=== PATIENT | female | born 1950 | race Caucasian/White ===

== ENCOUNTER 2020-12-27 20:26 | Outpatient (CLI) | payer MEDICARE, MEDICAID | END 2020-12-27 20:27 | disposition home or self-care (01) | LOC: COV 20:26 | PROVIDERS: ATTEND Ophthalmology | DX: Z01.812 Encounter for preprocedural laboratory examination (principal); H25.812 Combined forms of age-related cataract, left eye; E11.9 Type 2 diabetes mellitus without complications; Z20.822 Contact with and (suspected) exposure to COVID-19 ==

== ENCOUNTER 2020-12-30 08:10 | Day surgery (SDC) | payer MEDICARE, MEDICAID ==
[~2020-12-30 08:10] MED LIST: KETOROLAC 0.45% OPHTH DROPS ONE; PROPARACAINE 0.5% OPHTH DROPS 15 ML ONE
[2020-12-30] MEDS ORDERED: TRIAMCIN/MOXIFLOX OPHTHALMIC 0.6 ML VIAL IO ONE ×2 (09:09→09:55)
[2020-12-30] MEDS ORDERED: EPINEPHrine 1 MG/ML AMP ONE (09:10)
[2020-12-30] MEDS ORDERED: BRIMONIDINE 0.2% OPHTH DROPS 5 ML ONE (09:10)
[2020-12-30] MEDS ORDERED: TIMOLOL 0.5% OPHTH DROPS ONE (09:10)
[2020-12-30] MEDS ORDERED: BSS/LIDOCAINE/EPINEPHRINE 1 ML SYRINGE ONE (09:10)
[2020-12-30] MEDS ORDERED: VANCOMYCIN OPHTHALMI 8MG/0.8ML 8 MG/0.8 ML SYRINGE IO ONE ×2 (09:10→09:56)
--- NOTE | 2020-12-30 09:20 | ANESTHESIA ---
Pre-Anesthesia VS, & Labs - Diagnosis senile combined cataract left eye - Procedure left eye cataract extraction with IOL Vital Signs: Temp Pulse Resp BP Pulse Ox 37.0 C 83 17 182/83 H 97 12/30/20 08:30 12/30/20 08:30 12/30/20 08:30 12/30/20 08:30 12/30/20 08:30 Height: 5 ft 6 in Weight (kg): 88.2 kg Body Mass Index: 31.4 BMI Classification: Obese - NPO >8 hours - Is Patient ?: No Home Medications and Allergies Home Medications: Ambulatory Orders Cholecalciferol (Vitamin D3) [Vitamin D3] 30 mcg PO DAILY 12/29/20 Cyclobenzaprine [Flexeril] 5 mg PO TID 12/29/20 Levothyroxine [Synthroid] 37.5 mcg PO DAILY 12/29/20 [place]-3/Dha/Epa/Fish Oil [Fish Oil 1,000 mg Softgel] 2 each PO DAILY 12/29/20 Omeprazole Magnesium 20 mg PO DAILY PRN 12/29/20 Topiramate [Topamax] 100 mg PO DAILY 12/29/20 Topiramate [Topamax] 200 mg PO DAILY 12/29/20 Cholecalciferol (Vitamin D3) [Vitamin D3] 30 mcg PO DAILY 12/29/20 Cyclobenzaprine [Flexeril] 5 mg PO TID 12/29/20 Levothyroxine [Synthroid] 37.5 mcg PO DAILY 12/29/20 [place]-3/Dha/Epa/Fish Oil [Fish Oil 1,000 mg Softgel] 2 each PO DAILY 12/29/20 Omeprazole Magnesium 20 mg PO DAILY PRN 12/29/20 Topiramate [Topamax] 100 mg PO DAILY 12/29/20 Topiramate [Topamax] 200 mg PO DAILY 12/29/20 Allergies/Adverse Reactions: Allergies Allergy/AdvReac Type Severity Reaction Status Date / Time Sulfa (Sulfonamide Allergy Respiratory Verified 12/29/20 14:30 Antibiotics) codeine AdvReac Nausea Verified 12/29/20 14:30 Yhsiryr-Esn-Jnt Reductase AdvReac severe leg Verified 12/29/20 14:30 Inhibitor cramps Anes History & Medical History - Anesthetic History Anesthesia Complications: reports: No previous complications - Medical History Cardiovascular: reports: Arrhythmia Pulmonary: reports: Sleep apnea (no CPAP) Gastrointestinal: reports: GERD (barrets), Hepatitis (Hep. C positive) Urinary: reports: None Neuro: reports: Tremors Musculoskeletal: reports: Osteoarthritis, Chronic back pain Endocrine/Autoimmune: reports: HyPOthyroidism (hashimotos) Blood Disorders: reports: None Skin: reports: None Smoking Status: Former smoker (quit 1984) Psychosocial: reports: Depression, Anxiety, Other (PTSD) - Surgical History General: reports: Appendectomy Exam General: Alert, Oriented x3, Cooperative, No acute distress Dental: WNL Mouth Openin Fingerbreadth Neck Mobility: Normal Mallampati classification: II Thyromental Distance: 4-6 cm Mental/Cognitive Status: Alert/Oriented X3, Normal for patient Plan Anesthesia Type: MAC Consent for Procedure(s) Verified and Reviewed: Yes Code Status: Attempt Resuscitation ASA classification: 2-Mild systemic disease Is this case an emergency?: No
[2020-12-30] MEDS ORDERED: MIDAZOLAM 2 MG/2 ML VIAL ONE (09:28)
[2020-12-30] MEDS ORDERED: EPINEPHrine 1 MG/ML AMP IR ONE (09:54)
[2020-12-30] MEDS ORDERED: BRIMONIDINE 0.2% OPHTH DROPS 5 ML OPTH ONE (09:54)
[2020-12-30] MEDS ORDERED: TIMOLOL 0.5% OPHTH DROPS OPTH ONE (09:54)
[2020-12-30] MEDS ORDERED: CHONDR SULF/HYALURONATE SYRINGE IO ONE (09:54)
[2020-12-30] MEDS ORDERED: BSS/LIDOCAINE/EPINEPHRINE 1 ML SYRINGE IO ONE (09:55)
[2020-12-30] MEDS ORDERED: PROPARACAINE 0.5% OPHTH DROPS 15 ML EACHEYE ONE (09:56)
[2020-12-30] MEDS ORDERED: LACTATED RINGERS 450 ML IV ONE (10:10)
--- NOTE | 2020-12-30 10:38 | OPERATIVE REPORT ---
DATE OF SERVICE: 12/30/2020 Physician: Andres Sanchez MD PREOPERATIVE DIAGNOSIS: Visually significant cataract, left eye. This was her first cataract surgery. POSTOPERATIVE DIAGNOSIS: Visually significant cataract, left eye. This was her first cataract surgery. PROCEDURE: Phacoemulsification with posterior chamber intraocular lens implant, left eye. SURGEON: Andres Sanchez III, MD ANESTHESIA: Monitored anesthesia care. COMPLICATIONS: None. OPERATIVE INDICATIONS: This is a 70-year-old woman with progressive vision loss in the left eye due to 2+ nuclear sclerotic and 3+ posterior subcapsular cataract. Best corrected visual acuity was 20/80 with glare to 20/630 in the left eye. Indications for surgery are overall decrease in vision, difficulty seeing words on a computer screen, difficulty reading, difficulty seeing words, closed caption or game scores on TV, difficulty seeing street signs, difficulty driving in low light or at night, difficulty driving at night because of headlights from other vehicles, difficulty with glare or bright lights in any situation and difficulty tracking a golf ball. She was consented at length concerning risks and benefits of cataract surgery, after which she expressed a desire to proceed with surgery. OPERATIVE PROCEDURE: Prior to the patient going to the OR in the PACU(preanesthesia care unit), the patient's cornea was marked with a Tito marker for axis 169 for a planned toric intraocular lens. The patient was then taken into OR #3 and placed under monitored anesthesia care. A surgical timeout was conducted to confirming correct patient, correct procedure, and correct surgical site. She was given topical anesthesia and prepped and draped in the usual sterile fashion. The eye was entered at the 6 and 3 o'clock positions. Intracameral Shugarcaine was injected into the anterior chamber followed by Viscoat. A continuous-tear curvilinear capsulorrhexis was performed. The nucleus was hydrodissected and phacoemulsified. The cortex was evacuated using automated infusion and aspiration. Provisc was injected in the capsular bag and a 25.0 diopter toric intraocular lens inserted in the bag and rotated to axis 169. Infusion and aspiration were used to evacuate the viscoelastic materials. The eye was inflated to physiologic pressure using balanced salt solution and found to be watertight. [place] was again verified to still be at 169. Approximately 0.25 mL mixture of triamcinolone and moxifloxacin was injected transsclerally into the vitreous in the inferotemporal quadrant. An additional 0.55 mL of a mixture of triamcinolone, moxifloxacin and vancomycin was injected subconjunctivally in the superior quadrant for infection and inflammation prophylaxis. Wound integrity was checked with Weck-Bety sponges and the axis was again verified to be at 169. The patient was taken from the operating room in good condition and given postoperative instructions. TD: 12/30/2020 10:37 MTDD
[2020-12-30 10:49] VITALS: BP 149/71
--- NOTE | 2020-12-30 13:15 | ANESTHESIA POST OP EVALUATION ---
Anesthesia Post Eval - Post Anesthesia Eval Vitals: Last Vital Signs Temp 36.2 C L 12/30/20 10:48 Pulse 74 12/30/20 10:48 Resp 16 12/30/20 10:48 BP 149/71 H 12/30/20 10:48 Pulse Ox 97 12/30/20 10:48 CV Function Including HR & BP: Stable Pain Control: Satisfactory Nausea & Vomiting: Negative Mental Status: Baseline Respiratory Status: Airway Patent Hydration Status: Satisfactory Anesthesia Complications: None
== END 2020-12-30 08:11 | disposition home or self-care (01) ==
LOC: SDS 08:10
PROVIDERS: ATTEND Ophthalmology
DX: H25.812 Combined forms of age-related cataract, left eye (principal); R73.03 Prediabetes; I10 Essential (primary) hypertension; E78.5 Hyperlipidemia, unspecified; E06.3 Autoimmune thyroiditis; G40.909 Epilepsy, unspecified, not intractable, without status epilepticus; I49.9 Cardiac arrhythmia, unspecified; G47.30 Sleep apnea, unspecified; K22.70 Barrett's esophagus without dysplasia; K21.9 Gastro-esophageal reflux disease without esophagitis; F43.10 Post-traumatic stress disorder, unspecified; F41.9 Anxiety disorder, unspecified; F32.9 Major depressive disorder, single episode, unspecified; R25.1 Tremor, unspecified; G89.29 Other chronic pain; M54.9 Dorsalgia, unspecified; M54.2 Cervicalgia; M19.90 Unspecified osteoarthritis, unspecified site; Z87.891 Personal history of nicotine dependence; Z86.19 Personal history of other infectious and parasitic diseases; Z86.79 Personal history of other diseases of the circulatory system; Z79.899 Other long term (current) drug therapy; E66.9 Obesity, unspecified; Z68.31 Body mass index [BMI] 31.0-31.9, adult
CPT/HCPCS: 66984; A9270; J3490; J7120; V2632

== ENCOUNTER 2021-07-05 08:21 | Outpatient (CLI) | payer MEDICARE, MEDICAID ==
--- NOTE | 2021-07-14 09:21 | Mammography Report ---
BILATERAL DIGITAL SCREENING MAMMOGRAM 3D/2D: 07/05/2021 CLINICAL: Routine screening. Additional films were requested but not obtained. The tissue of both breasts is heterogeneously dens e. This may lower the sensitivity of mammography. There is a global asymmetry in the right breast upper outer aspect middle depth. No other significant masses, calcifications, or other findings are seen in either breast. IMPRESSION: INCOMPLETE: NEED PRIOR STUDIES FOR COMPARISON The global asymmetry in the right breast is indeterminate. Additional views with possible ultrasound are recommended. This exam was interpreted at Station ID: [id number]. NOTE: For mammograms, a report in lay terms will be sent to the patient. Approximately 15% of breast malignancies will not be visualized mammographically. In the management of a palpable breast mass, a negative mammogram must not discourage biopsy of a clinically suspicious lesion. Electronically Signed By: Giovanni ma/natan:07/13/2021 15:28:05 ACR BI-RADS Category 0 Need prior studies for comparison [id number] PARENCHYMAL PATTERN: (D) - The breast(s) demonstrate(s) heterogeneously dense fibroglandular paresteban arndt. BI-RADS CATEGORY: (0) - 0 Mammo and [place] [id number] Immediate follow-up LATERALITY: (R)
== END 2021-07-05 08:22 | disposition home or self-care (01) ==
LOC: DI.N 08:21
PROVIDERS: ATTEND Internal Medicine
DX: Z12.31 Encounter for screening mammogram for malignant neoplasm of breast (principal); R92.8 Other abnormal and inconclusive findings on diagnostic imaging of breast

== ENCOUNTER 2021-07-27 15:41 | Outpatient (CLI) | payer MEDICARE, MEDICAID | END 2021-07-27 15:42 | disposition home or self-care (01) | LOC: LAB.N 15:41 | PROVIDERS: ATTEND Ophthalmology | DX: Z01.812 Encounter for preprocedural laboratory examination (principal); H25.811 Combined forms of age-related cataract, right eye; E11.9 Type 2 diabetes mellitus without complications; Z20.822 Contact with and (suspected) exposure to COVID-19 ==

== ENCOUNTER 2021-07-28 06:41 | Day surgery (SDC) | payer MEDICARE, MEDICAID ==
[~2021-07-28 06:41] MED LIST changes: +CYCLOPENTOLATE 1% OPHTH DROPS 2 ML ONE; +PHENYLEPHRINE 2.5% OPHTH 2 ML DROPS ONE
[2021-07-28] MEDS ORDERED: BRIMONIDINE 0.2% OPHTH DROPS 5 ML ONE (06:56)
[2021-07-28] MEDS ORDERED: TRIAMCIN/MOXIFLOX OPHTHALMIC 0.6 ML VIAL IO ONE ×2 (06:56→08:02)
[2021-07-28] MEDS ORDERED: VANCOMYCIN OPHTHALMI 8MG/0.8ML 8 MG/0.8 ML SYRINGE IO ONE ×2 (06:56→08:02)
[2021-07-28] MEDS ORDERED: TIMOLOL 0.5% OPHTH DROPS ONE (06:56)
[2021-07-28] MEDS ORDERED: EPINEPHrine 1 MG/ML AMP ONE (06:56)
[2021-07-28] MEDS ORDERED: BSS/LIDOCAINE/EPINEPHRINE 1 ML SYRINGE ONE (06:56)
[2021-07-28] MEDS ORDERED: LACTATED RINGERS 1,000 ML IV ONE (07:07)
[2021-07-28] MEDS ORDERED: fentaNYL 100 MCG/2 ML VIAL ONE (07:32)
[2021-07-28] MEDS ORDERED: MIDAZOLAM 2 MG/2 ML VIAL ONE (07:32)
--- NOTE | 2021-07-28 07:46 | ANESTHESIA ---
Pre-Anesthesia VS, & Labs - Diagnosis senile cataract right eye - Procedure right cataract extraction with intraocular lens Vital Signs: Temp Pulse Resp BP Pulse Ox 36.5 C 92 14 192/78 H 98 07/28/21 07:00 07/28/21 07:00 07/28/21 07:00 07/28/21 07:00 07/28/21 07:00 Height: 5 ft 6 in Weight (kg): 90.8 kg Body Mass Index: 32.3 BMI Classification: Obese - NPO >8 hours - Is Patient ?: No Home Medications and Allergies Home Medications: Ambulatory Orders Ascorbic Acid [Vitamin C] 500 mg PO DAILY 07/27/21 Cholecalciferol (Vitamin D3) [Vitamin D] 800 unit PO DAILY 07/27/21 Levothyroxine [Synthroid] 37.5 mcg PO DAILY 12/29/20 [place]-3/Dha/Epa/Fish Oil [Fish Oil 1,000 mg Softgel] 1 each PO DAILY 12/29/20 Omeprazole Magnesium 20 mg PO DAILY PRN 12/29/20 Topiramate [Topamax] 100 mg PO DAILY 12/29/20 Ascorbic Acid [Vitamin C] 500 mg PO DAILY 07/27/21 Cholecalciferol (Vitamin D3) [Vitamin D] 800 unit PO DAILY 07/27/21 Allergies/Adverse Reactions: Allergies Allergy/AdvReac Type Severity Reaction Status Date / Time Sulfa (Sulfonamide Allergy Respiratory Verified 12/29/20 14:30 Antibiotics) codeine AdvReac Nausea Verified 12/29/20 14:30 Xwnklaa-[id number]-[id number] Reductase AdvReac severe leg Verified 12/29/20 14:30 Inhibitor cramps [Qldbfdg-Joz-Twt Reductase Inhibitor] Anes History & Medical History - Anesthetic History Anesthesia Complications: reports: No previous complications - Medical History Cardiovascular: reports: Hypertension (eye surgery), Arrhythmia Pulmonary: reports: Sleep apnea Gastrointestinal: reports: GERD, Hepatitis Urinary: reports: None Neuro: reports: Tremors Blood Disorders: reports: None Skin: reports: None Smoking Status: Former smoker (quit 1984) - Surgical History General: reports: Appendectomy Neurologic: reports: Other Exam General: Alert Dental: WNL Mallampati classification: II Respiratory: Lungs clear Cardiovascular: Regular rate Plan Anesthesia Type: MAC Consent for Procedure(s) Verified and Reviewed: Yes Code Status: Attempt Resuscitation ASA classification: 2-Mild systemic disease Is this case an emergency?: No
[2021-07-28] MEDS ORDERED: EPINEPHrine 1 MG/ML AMP IR ONE (08:01)
[2021-07-28] MEDS ORDERED: TIMOLOL 0.5% OPHTH DROPS OPTH ONE (08:01)
[2021-07-28] MEDS ORDERED: BRIMONIDINE 0.2% OPHTH DROPS 5 ML OPTH ONE (08:01)
[2021-07-28] MEDS ORDERED: BSS/LIDOCAINE/EPINEPHRINE 1 ML SYRINGE IO ONE (08:01)
[2021-07-28] MEDS ORDERED: PROPARACAINE 0.5% OPHTH DROPS 15 ML EACHEYE ONE (08:02)
[2021-07-28] MEDS ORDERED: LACTATED RINGERS 700 ML IV ONE (08:14)
[2021-07-28 08:15] VITALS: BP 155/74
--- NOTE | 2021-07-28 08:18 | ANESTHESIA POST OP EVALUATION ---
Anesthesia Post Eval - Post Anesthesia Eval Vitals: Last Vital Signs Temp 36.9 C 07/28/21 08:12 Pulse 87 07/28/21 08:12 Resp 16 07/28/21 08:12 BP 155/74 H 07/28/21 08:12 Pulse Ox 97 07/28/21 08:12 CV Function Including HR & BP: Stable Pain Control: Satisfactory Nausea & Vomiting: Negative Mental Status: Baseline Respiratory Status: Airway Patent Hydration Status: Satisfactory Anesthesia Complications: None
--- NOTE | 2021-07-28 08:23 | OPERATIVE REPORT ---
Operative Report - Other Other Information/Narrative: Date of Surgery: 07/28/21 Preop Dx: Visually significant cataract right eye. Cataract surgery was performed in the left eye on . Postop Dx: Same Procedure: Phacoemulsification with posterior chamber toric intraocular lens implant right eye Surgeon: Dr. Andres Sanchez Anesthesia: Monitored anesthesia care Complications: None Operative Indications: This is a 70-year-old F with progressive vision loss in the right eye due to 2-3+ nuclear sclerotic and 1+ cortical cataract. Best corrected visual acuity was 20/25 with glare to 20/40 vision in the right eye. Indications for surgery were: - Overall decrease in vision - Difficulty seeing words on a computer screen - Difficulty reading - Difficulty seeing words, closed captions, or game scores on TV - Difficulty seeing street signs - Difficulty driving in low light or at night - Difficulty driving at night because of headlights from other vehicles - Difficulty with glare or bright lights in any situation The patient was consented at length concerning the risks and benefits of cataract surgery after which the patient expressed a desire to proceed with surgery. Operative Procedure: The patients cornea was marked in the pre-surgical area to indicate the axis for the toric intraocular lens. The patient was taken into OR#3 and placed under monitored anesthesia care. A surgical time-out was conducted confirming correct patient, correct procedure, and correct surgical site. The patient was given topical anesthesia and then prepped and draped in the usual sterile fashion. The eye was entered at the 6 and 3 oclock positions. Intracameral Shugarcaine was injected into the anterior chamber foll owed by a dispersive viscoelastic. A continuous-tear curvilinear capsulorhexis was performed. The nucleus was hydrodissected and phacoemulsified. The cortex was evacuated using automated infusion and aspiration. A cohesive viscoelastic was injected into the capsular bag and a 24.5 diopter toric intraocular lens was inserted into the bag and rotated to axis 015. Infusion and aspiration were used to evacuate the viscoelastic materials from the eye and the IOL was verified to remain on axis. The wounds were hydrated and the eye inflated to physiologic pressure using balanced salt solution. Approximately 0.25ml of a mixture of triamcinolone and moxifloxacin was injected trans-sclerally into the vitreous in the inferotemporal quadrant using a 30 gauge cannula. An additional 0.55ml of a mixture of triamcinolone, moxifloxacin, and vancomycin was injected subconjunctivally in the superior quadrant for infection and inflammation prophylaxis. Wound integrity was checked with Weck-Bety sponges and the IOL axis was once again verified to be on the correct axis. The patient was taken from the operating room in good condition and given post-op instructions.
== END 2021-07-28 06:42 | disposition home or self-care (01) ==
LOC: SDS 06:41
PROVIDERS: ATTEND Ophthalmology
DX: H25.811 Combined forms of age-related cataract, right eye (principal); Z98.42 Cataract extraction status, left eye; F41.9 Anxiety disorder, unspecified; G47.30 Sleep apnea, unspecified; E66.9 Obesity, unspecified; Z68.32 Body mass index [BMI] 32.0-32.9, adult; Z87.891 Personal history of nicotine dependence
CPT/HCPCS: 66984; A9270; J3490; J7120; V2632; V2787

== ENCOUNTER 2021-08-16 08:00 | Outpatient (CLI) | payer MEDICARE, MEDICAID ==
[2021-08-16 17:46] LABS: CALCIUM 9.3 mg/dL (8.5-10.3); CREATININE 0.7 mg/dL (0.4-1.0); MAGNESIUM 2.2 mg/dL (1.7-2.8); POTASSIUM 4.1 mmol/L (3.5-5.0)
[2021-08-16 19:34] LABS: ESTIMATED AVERAGE GLUCOSE 148 mg/dL (70-100); HEMOGLOBIN A1c% 6.8 % (4.27-6.07)
== END 2021-08-16 23:59 | disposition home or self-care (01) ==
LOC: LAB.S 08:00
PROVIDERS: ATTEND Internal Medicine
DX: E03.9 Hypothyroidism, unspecified (principal); G25.3 Myoclonus; Z79.899 Other long term (current) drug therapy
CPT/HCPCS: 36415; 80048; 83036; 83735; 84443

== ENCOUNTER 2021-09-19 11:19 | Outpatient (CLI) | payer MEDICARE, MEDICAID ==
--- NOTE | 2021-09-20 13:28 | CARDIAC PROCEDURE NOTE ---
Stress Test Report Procedure: Stress ECHO Ruy Protocol. 4 mins 21 seconds. mets = 6.34. Reason for stopping: leg pain HR response: 74 to 138 BP response: 155/86 to 255/83 Symptoms: no chest pain. ST segment response: no significant ST segment elevations or depressions Arrhythmias: none detected Impression: no symptoms, no significant EKG changes Conclusion: low-risk ETT. Await ECHO results before making final conclusion.
== END 2021-09-19 11:20 | disposition home or self-care (01) ==
LOC: DI 11:19
PROVIDERS: ATTEND Internal Medicine
DX: R07.9 Chest pain, unspecified (principal)
CPT/HCPCS: 93350

== ENCOUNTER 2021-11-09 08:00 | Outpatient (CLI) | payer MEDICARE, MEDICAID ==
[2021-11-09 13:22] LABS: BILIRUBIN,URINE NEGATIVE (NEGATIVE); GLUCOSE, URINE (UA) NEGATIVE (NEGATIVE); KETONES,URINE (UA) NEGATIVE (NEGATIVE); LEUKOCYTE ESTERASE, URINE NEGATIVE (NEGATIVE); NITRITE,URINE NEGATIVE (NEGATIVE); OCCULT BLOOD,URINE NEGATIVE (NEGATIVE); PROTEIN,URINE NEGATIVE (NEGATIVE); UROBILINOGEN,URINE 0.2 (NORMAL) E.U./dL (NORMAL)
[2021-11-09 13:24] LABS: CLARITY,URINE CLEAR (CLEAR)
== END 2021-11-09 23:59 ==
LOC: LAB.R 08:00
PROVIDERS: ATTEND Internal Medicine
DX: R39.9 Unspecified symptoms and signs involving the genitourinary system (principal)
CPT/HCPCS: 81001; 81003; 87086

== ENCOUNTER 2021-11-16 09:24 | Outpatient (CLI) | payer MEDICARE, MEDICAID ==
--- NOTE | 2021-11-16 10:20 | CT Report ---
PROCEDURE: Abdomen/Pelvis WO INDICATIONS: FLANK PAIN TECHNIQUE: Noncontrast 5 mm thick sections acquired from the diaphragms to the symphysis. 5 mm coronal and sagi ttal reformats were then performed. For radiation dose reduction, the following was used: automated exposure control, adjustment of mA and/or kV according to patient size. COMPARISON: None. FINDINGS: Inferior chest: No focal consolidation, pleural effusion, or pneumothorax. No cardiomegaly or perica rdial effusion. Gallbladder: The gallbladder is distended with a smooth wall. Biliary tree: No intra-or extrahepatic biliary ductal dilatation. Liver: The liver demonstrates normal appearance. Spleen: Normal size and morphology is seen. Pancreas: Normal morphology without masses or inflammatory changes. Adrenals: No left adrenal gland nodularity. 3.5 x 3.6 cm mass in the right adrenal gland, most consis tent with an adenoma. Kidneys: Normal size and morphology. No contour deforming solid masses or evidence of obstructive uro nithin. Vasculature: No evidence of aneurysm or other significant vascular pathology. Lymphatic system: No pathologic enlargement by size criteria. Bowel: No intestinal obstruction. Duodenal diverticulum, measuring approximately 3.5 cm. Colonic dive rticulosis. Mild wall thickening of the sigmoid colon, which is nonspecific. The appendix is not well -visualized. Peritoneum/Retroperitoneum: No free intraperitoneal gas or large collection. Urinary bladder: Mild wall thickening, which may be secondary to underdistention. Pelvic organs: Myomatous change of the uterus. Bones/soft tissues: Levocurvature of the lumbar spine. Multifocal degenerative change. Small fat-containing periumbilical hernia. IMPRESSION: 1.Mild wall thickening of the sigmoid colon, which is nonspecific. Differential considerations includ e chronic change versus developing diverticular disease. Reviewed by: Sascha Tejada MD on 11/16/2021 10:19 AM PDT Approved by: Sascha Tejada MD on 11/16/2021 10:19 AM PDT Station ID: [id number]
== END 2021-11-16 09:25 | disposition home or self-care (01) ==
LOC: DI 09:24
PROVIDERS: ATTEND Internal Medicine
DX: R10.9 Unspecified abdominal pain (principal); R31.9 Hematuria, unspecified

== ENCOUNTER 2023-02-21 11:37 | Outpatient (CLI) | payer MEDICARE, MEDICAID ==
[2023-02-21 17:50] LABS: BASOPHILS % (AUTO) 0.6 %; EOSINOPHILS # (AUTO) 0.3 10^3/uL (0.0-0.7); EOSINOPHILS % (AUTO) 3.8 %; HCT - HEMATOCRIT 45.1 % (37.0-47.0); HGB - HEMOGLOBIN 14.2 g/dL (12.0-16.0); LYMPHOCYTES # (AUTO) 2.7 10^3/uL (1.5-3.5); LYMPHOCYTES % (AUTO) 39.3 %; MEAN CORPUSCULAR HEMOGLOBIN 28.5 pg (27.0-31.0); MEAN CORPUSCULAR HGB CONC 31.5 g/dL (32.0-36.0); MEAN CORPUSCULAR VOLUME 90.4 fL (81.0-99.0); MEAN PLATELET VOLUME 10.3 fL (7.9-10.8); MONOCYTES # (AUTO) 0.6 10^3/uL (0.0-1.0); MONOCYTES % (AUTO) 9.3 %; NEUTROPHILS # (AUTO) 3.2 10^3/uL (1.5-6.6); NEUTROPHILS % (AUTO) 46.9 %; PLT - PLATELET COUNT 227 10^3/uL (130-450); RED BLOOD COUNT 4.99 10^6/uL (4.20-5.40); WHITE BLOOD COUNT 6.8 x10^3/uL (4.8-10.8)
[2023-02-21 18:18] LABS: ALKALINE PHOSPHATASE 57 IU/L (42-121); ALT ALANINE AMINOTRANSFERASE 24 IU/L (10-60); AST ASPARTATE AMINOTRANSFERASE 23 IU/L (10-42); BILIRUBIN,TOTAL 0.5 mg/dL (0.2-1.0); BUN - BLOOD UREA NITROGEN 13 mg/dL (6-20); CALCIUM 8.9 mg/dL (8.5-10.3); CARBON DIOXIDE - CO2 29 mmol/L (21-32); CHLORIDE 103 mmol/L (101-111); CHOL/HDL RATIO 7.6 (<4.4); CHOLESTEROL 282 mg/dL; CREATININE 0.9 mg/dL (0.4-1.0); GFR - MDRD 62 (>89); GLUCOSE 168 mg/dL (70-100); HDL CHOLESTEROL 37 mg/dL; POTASSIUM 4.1 mmol/L (3.5-5.0); SODIUM 137 mmol/L (135-145); TRIGLYCERIDES 564 mg/dL
[2023-02-21 18:19] LABS: T4 (THYROXINE) 7.39 ug/dL (6.09-12.23)
[2023-02-21 18:23] LABS: THYROID STIMULATING HORMONE 2.85 uIU/mL (0.34-5.60)
[2023-02-21 18:25] LABS: FREE T4 (FREE THYROXINE) 0.68 ng/dL (0.58-1.64)
[2023-02-21 18:53] LABS: LDL CHOLESTEROL,DIRECT 134 mg/dL; LDLD/HDL RATIO 3.6 (<4.4)
[2023-02-21 20:13] LABS: ESTIMATED AVERAGE GLUCOSE 183 mg/dL (70-100)
== END 2023-02-21 11:38 | disposition home or self-care (01) ==
LOC: LAB.N 11:37
PROVIDERS: ATTEND Nurse Practitioner Family
DX: E03.9 Hypothyroidism, unspecified (principal); R73.03 Prediabetes; E66.9 Obesity, unspecified
CPT/HCPCS: 36415; 80053; 80061; 83036; 83721; 84436; 84439; 84443; 85025

== ENCOUNTER 2023-06-25 13:28 | Outpatient (CLI) | payer MEDICARE, MEDICAID ==
[2023-06-25 18:55] LABS: BUN - BLOOD UREA NITROGEN 10 mg/dL (6-20); CALCIUM 9.7 mg/dL (8.5-10.3); CARBON DIOXIDE - CO2 29 mmol/L (21-32); CHLORIDE 100 mmol/L (101-111); CHOL/HDL RATIO 6.8 (<4.4); CHOLESTEROL 264 mg/dL; CREATININE 0.7 mg/dL (0.6-1.3); GFR - MDRD 82 (>89); GLUCOSE 123 mg/dL (74-104); HDL CHOLESTEROL 39 mg/dL; POTASSIUM 4.2 mmol/L (3.5-4.5); SODIUM 137 mmol/L (135-145); TRIGLYCERIDES 474 mg/dL (48-352)
[2023-06-25 19:46] LABS: LDL CHOLESTEROL,DIRECT 156 mg/dL (75-193)
[2023-06-25 22:03] LABS: ESTIMATED AVERAGE GLUCOSE 169 mg/dL (70-100); HEMOGLOBIN A1c% 7.5 % (4.27-6.07)
== END 2023-06-25 13:29 | disposition home or self-care (01) ==
LOC: LAB.N 13:28
PROVIDERS: ATTEND Nurse Practitioner Family
DX: E11.65 Type 2 diabetes mellitus with hyperglycemia (principal); E78.5 Hyperlipidemia, unspecified
CPT/HCPCS: 36415; 80048; 80061; 83036; 83721

== ENCOUNTER 2023-11-29 13:33 | Outpatient (CLI) | payer MEDICARE, MEDICAID ==
[2023-11-29] MEDS ORDERED: iohexoL-300 100 ML VIAL ONE (13:45)
[2023-11-29 13:56] LABS: CREATININE 0.7 mg/dL (0.6-1.3)
[2023-11-29] MEDS: iohexoL-300 100 ML VIAL IVP ONE (15:25)
--- NOTE | 2023-11-29 17:08 | CT Report ---
PROCEDURE: CT Angio Head INDICATIONS: CEREBRAL ANEURYSM CONTRAST: Omnipaque 300 100ml TECHNIQUE: After the administration of intravenous contrast, 1 mm thick sections acquired through the [place] of [place]. Postcontrast 4.5 mm thick sections then re-acquired from the foramen magnum to the vertex. 3-dimensional ehwgplm-urcoybysi-laueuteyuq (MIP) and/or volume rendering reformats were acquired of [facility] intracranial vasculature. For radiation dose reduction, the following was used: automate d exposure control, adjustment of mA and/or kV according to patient size. COMPARISON: None. FINDINGS: Image quality: There is artifact associated with the metallic hardware. Anterior circulation: Within the right intracranial internal carotid artery, there is a stent seen, with coiling present along the lateral aspect of the artery itself. No findings of recurrent aneurysm can be seen at this site. Intracranial internal carotid arteries are normal in size and flow. The flow within the paired anter ior cerebral arteries is normal and symmetric. The flow within the middle cerebral arteries is surinder l and symmetric. The anterior communicating artery is seen. No aneurysms are seen. Posterior circulation: Visualized portions of the vertebral arteries demonstrate normal caliber, and join to form a normal appearing basilar artery. The right vertebral artery is dominant to the left. Flow within the posterior cerebral arteries is normal and symmetric. No aneurysms are seen. CSF spaces: Ventricles are normal in size and shape. Basal cisterns are patent. No extra-axial flu id collections. Brain: No midline shift. No intracranial bleeds or masses. Valentine-white matter interface appears int act. Skull and face: Calvarium and facial bones appear intact, without suspicious lesions. Sinuses: Visualized sinuses and mastoids are clear. 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 No new aneurysm is detected. Reviewed by: Cosme Mccullough MD on 11/29/2023 4:07 PM LAUREN Approved by: Cosme Mccullough MD on 11/29/2023 4:07 PM LAUREN Station ID: [id number]
== END 2023-11-29 13:34 | disposition home or self-care (01) ==
LOC: LAB 13:33
PROVIDERS: ATTEND Physician Assistant Medical
DX: I67.1 Cerebral aneurysm, nonruptured (principal)
CPT/HCPCS: 36415; 70496; 82565; Q9967

== ENCOUNTER 2023-12-28 12:03 | Outpatient (CLI) | payer MEDICARE, MEDICAID ==
[2023-12-28 17:52] LABS: BASOPHILS # (AUTO) 0.1 10^3/uL (0.0-0.1); BASOPHILS % (AUTO) 0.7 %; EOSINOPHILS # (AUTO) 0.1 10^3/uL (0.0-0.7); EOSINOPHILS % (AUTO) 1.5 %; HCT - HEMATOCRIT 44.2 % (37.0-47.0); HGB - HEMOGLOBIN 14.3 g/dL (12.0-16.0); LYMPHOCYTES # (AUTO) 2.9 10^3/uL (1.5-3.5); LYMPHOCYTES % (AUTO) 37.7 %; MEAN CORPUSCULAR HEMOGLOBIN 28.3 pg (27.0-31.0); MEAN CORPUSCULAR HGB CONC 32.4 g/dL (32.0-36.0); MEAN CORPUSCULAR VOLUME 87.5 fL (81.0-99.0); MEAN PLATELET VOLUME 10.2 fL (7.9-10.8); MONOCYTES # (AUTO) 0.6 10^3/uL (0.0-1.0); MONOCYTES % (AUTO) 8.3 %; NEUTROPHILS # (AUTO) 3.9 10^3/uL (1.5-6.6); NEUTROPHILS % (AUTO) 51.7 %; PLT - PLATELET COUNT 256 10^3/uL (130-450); RED BLOOD COUNT 5.05 10^6/uL (4.20-5.40); RED CELL DISTRIBUTION WIDTH 13.9 % (12.0-15.0); WHITE BLOOD COUNT 7.6 x10^3/uL (4.8-10.8)
[2023-12-28 18:17] LABS: ALBUMIN 4.3 g/dL (3.2-5.5); ALBUMIN/GLOBULIN RATIO 1.2 (1.0-2.2); ALKALINE PHOSPHATASE 66 IU/L (42-121); ALT ALANINE AMINOTRANSFERASE 14 IU/L (10-60); AST ASPARTATE AMINOTRANSFERASE 16 IU/L (10-42); BILIRUBIN,TOTAL 0.4 mg/dL (0.2-1.0); BUN - BLOOD UREA NITROGEN 12 mg/dL (6-20); CALCIUM 9.5 mg/dL (8.5-10.3); CARBON DIOXIDE - CO2 28 mmol/L (21-32); CHLORIDE 99 mmol/L (101-111); CHOL/HDL RATIO 6.3 (<4.4); CHOLESTEROL 265 mg/dL; CREATININE 0.7 mg/dL (0.6-1.3); GFR - MDRD 82 (>89); GLUCOSE 139 mg/dL (74-104); HDL CHOLESTEROL 42 mg/dL; LDL CHOLESTEROL,DIRECT 138 mg/dL (75-193); POTASSIUM 4.1 mmol/L (3.5-4.5); SODIUM 135 mmol/L (135-145); TOTAL PROTEIN 7.9 g/dL (6.4-8.9); TRIGLYCERIDES 520 mg/dL (48-352)
[2023-12-28 18:27] LABS: THYROID STIMULATING HORMONE 2.21 uIU/mL (0.34-5.60)
[2023-12-28 19:59] LABS: ESTIMATED AVERAGE GLUCOSE 183 mg/dL (70-100)
== END 2023-12-28 12:04 | disposition home or self-care (01) ==
LOC: LAB.N 12:03
PROVIDERS: ATTEND Physician Assistant Medical
DX: I10 Essential (primary) hypertension (principal); E78.1 Pure hyperglyceridemia; E78.5 Hyperlipidemia, unspecified; R53.83 Other fatigue; E11.65 Type 2 diabetes mellitus with hyperglycemia; E03.9 Hypothyroidism, unspecified
CPT/HCPCS: 36415; 80053; 80061; 82043; 82306; 82570; 82607; 83036; 83721; 84443; 85025

== ENCOUNTER 2023-12-31 08:00 | Outpatient (CLI) | payer MEDICARE, MEDICAID ==
[2023-12-31 18:03] LABS: CREATININE,URINE 84.3 mg/dL; MICROALBUM/CREATININE RATIO,UR 9.5 ug/mg (<30.0); MICROALBUMIN,URINE 0.8 mg/dL
== END 2023-12-31 23:59 | disposition home or self-care (01) ==
LOC: LAB.R 08:00
PROVIDERS: ATTEND Physician Assistant Medical
DX: E11.65 Type 2 diabetes mellitus with hyperglycemia (principal)
CPT/HCPCS: 82043; 82570

== ENCOUNTER 2024-01-15 09:30 | Outpatient (CLI) | payer MEDICARE, MEDICAID ==
[2024-01-15] MEDS ORDERED: iohexoL-300 100 ML VIAL ONE (09:32)
--- NOTE | 2024-01-15 12:08 | CT Report ---
PROCEDURE: Chest W INDICATIONS: CHEST PAIN CONTRAST: Omni 300 100ml TECHNIQUE: After the administration of intravenous contrast, a CT scan of the chest was performed. Images were recorded and evaluated at appropriate window settings. Reformats: axial MIP of the chest, coronal and sagittal. For radiation dose reduction, the following was used: automated exposure control, adjustme nt of mA and/or kV according to patient size. COMPARISON: None FINDINGS: Image quality: Diagnostic Lungs and pleura:No dense airspace disease or pleural effusions. Mild scattered scarring and atelecta sis is present at the bases. Right lower lobe 6 x 7 mm nodule (4/53) is present. Other micronodules/g ranulomas are seen. Mediastinum, heart, and esophagus: Mildly patulous distal esophagus. Normal heart size. Coronary calc ifications. No pathologic lymph nodes by size criteria. Chest wall and thyroid: Enlarged thyroid overall. Chest wall is unremarkable. Patient is due for scre ening mammography. Upper abdomen: Similar 3.2 cm right adrenal nodule. No gross abnormality elsewhere on this CT, abdome n is only partially visualized Bones: No acute or suspicious osseous findings. No displaced acute rib fracture. IMPRESSION: No acute thoracic abnormality. No pleural effusions or pneumothorax. No confluent airspace disease. No displaced fracture identified. Pulmonary nodules, largest in the right lower lobe measuring 6 x 7 mm, consider 6 month follow-up or sooner. This was marked in PACS for follow-up. Similar 3.2 cm right adrenal nodule, probably an adenoma. Consider correlation with laboratory testin g to determine functional status. Reviewed by: Srikanth Rollins MD on 01/15/2024 12:06 PM PDT Approved by: Srikanth Rollins MD on 01/15/2024 12:06 PM PDT Station ID: [id number]
== END 2024-01-15 09:31 | disposition home or self-care (01) ==
LOC: DI 09:30
PROVIDERS: ATTEND Physician Assistant Medical
DX: R91.8 Other nonspecific abnormal finding of lung field (principal)
CPT/HCPCS: 71260; Q9967

== ENCOUNTER 2024-03-07 08:40 | Outpatient (CLI) | payer MEDICARE, MEDICAID ==
--- NOTE | 2024-03-07 20:38 | Ultrasound Report ---
PROCEDURE: Soft Tissue Head or Neck INDICATIONS: THYROMEGALY TECHNIQUE: Real-time scanning was performed of the thyroid gland, with image documentation. COMPARISON: CT chest 01/15/2024 FINDINGS: Right: Thyroid lobe measures 6.4 x 2.6 x 2.2 cm. Left: Thyroid lobe measures 6.5 x 2.7 x 2.4 cm Isthmus: 1 cm thick. Echotexture: Homogeneous. No discrete thyroid nodules. No hyperemia appreciated. IMPRESSION: Enlarged thyroid gland. Reviewed by: Calos Rossi MD on 03/07/2024 8:37 PM PDT Approved by: Calos Rossi MD on 03/07/2024 8:37 PM PDT Station ID: [id number]
== END 2024-03-07 08:41 | disposition home or self-care (01) ==
LOC: DI 08:40
PROVIDERS: ATTEND Physician Assistant Medical
DX: E04.9 Nontoxic goiter, unspecified (principal)

== ENCOUNTER 2024-04-03 09:45 | Outpatient (CLI) | payer MEDICARE, MEDICAID ==
[2024-04-03 10:08] LABS: ALBUMIN 4.2 g/dL (3.2-5.5); ALBUMIN/GLOBULIN RATIO 1.3 (1.0-2.2); ALKALINE PHOSPHATASE 52 IU/L (42-121); ALT ALANINE AMINOTRANSFERASE 12 IU/L (10-60); AST ASPARTATE AMINOTRANSFERASE 14 IU/L (10-42); BILIRUBIN,TOTAL 0.4 mg/dL (0.2-1.0); BUN - BLOOD UREA NITROGEN 12 mg/dL (6-20); CALCIUM 9.3 mg/dL (8.5-10.3); CARBON DIOXIDE - CO2 31 mmol/L (21-32); CHLORIDE 103 mmol/L (101-111); CHOL/HDL RATIO 6.8 (<4.4); CHOLESTEROL 245 mg/dL; CREATININE 0.7 mg/dL (0.6-1.3); GFR - MDRD 82 (>89); GLUCOSE 161 mg/dL (74-104); HDL CHOLESTEROL 36 mg/dL; POTASSIUM 4.4 mmol/L (3.5-4.5); SODIUM 138 mmol/L (135-145); TOTAL PROTEIN 7.5 g/dL (6.4-8.9); TRIGLYCERIDES 489 mg/dL
[2024-04-03 10:27] LABS: ESTIMATED AVERAGE GLUCOSE 169 mg/dL (70-100); HEMOGLOBIN A1c% 7.5 % (4.27-6.07)
[2024-04-03 11:47] LABS: LDL CHOLESTEROL,DIRECT 130 mg/dL (75-193); LDLD/HDL RATIO 3.6 (<4.4)
== END 2024-04-03 09:46 | disposition home or self-care (01) ==
LOC: LAB 09:45
PROVIDERS: ATTEND Physician Assistant Medical
DX: E11.65 Type 2 diabetes mellitus with hyperglycemia (principal)
CPT/HCPCS: 36415; 80053; 80061; 83036; 83721

== ENCOUNTER 2024-05-19 09:07 | Outpatient (CLI) | payer MEDICARE, MEDICAID ==
--- NOTE | 2024-05-20 00:07 | DEXA Report ---
PROCEDURE: Dexa Spine and/or Hip INDICATIONS: POST MENOPAUSAL TECHNIQUE: Dual energy x-ray absorptiometry (DEXA) was performed in the regions detailed below. COMPARISON: None. FINDINGS: Lumbar Spine: Bone Mineral Density 1.082 g/cm/cm,T score -0.8. Normal Left Femoral Neck: Bone Mineral Density 1.013 g/cm/cm, T score -0.2. Normal Left Total Hip: Bone Mineral Density 1.137 g/cm/cm,T score 1.0. (T score greater or equal to -1.0: NORMAL) (T score from -1.1 to -2.4: OSTEOPENIA) (T score less than or equal to -2.5 to: OSTEOPOROSIS) IMPRESSION: Normal bone mineralization Patients with diagnosis of osteoporosis or osteopenia should have regular bone mineral density assess ment. For those eligible for Medicare, routine testing is allowed once every 2 years. Testing frequ ency can be increased for patients who have rapidly progressing disease or for those who are receivin g medical therapy to restore bone mass. Reviewed by: Fermín Whittington MD on 05/19/2024 11:05 PM LAUREN Approved by: Fermín Whittington MD on 05/19/2024 11:05 PM LAUREN Station ID: [id number]
== END 2024-05-19 09:08 | disposition home or self-care (01) ==
LOC: DI 09:07
PROVIDERS: ATTEND Physician Assistant Medical
DX: Z78.0 Asymptomatic menopausal state (principal)